=== PATIENT | male | born 1985 | race Caucasian/White ===

== ENCOUNTER 2017-10-06 20:10 | Emergency (ER) | payer OTHER ==
[2017-10-06 20:18] VITALS: RESP 18
[2017-10-06] MEDS ORDERED: Belladonna-Phenobarbital PO STA (20:47)
[2017-10-06] MEDS ORDERED: Lactated Ringer's 1,000 ML IVB STA (20:47)
[2017-10-06] MEDS ORDERED: Lactated Ringer's 1,000 ML ONE (20:55)
[2017-10-06] MEDS ORDERED: Belladonna-Phenobarbital ONE (20:55)
[2017-10-06 20:58] LABS: BASO % 0.3 % (0.0-2.0); EOS # 0.2 K/uL (0.0-0.7); EOS % 2.6 % (0.0-4.0); HEMOGLOBIN 15.2 g/dL (12.0-18.0); LYMPH # 0.9 K/uL (1.0-4.3); LYMPH % 12.5 % (20.0-40.0); MEAN CELL VOLUME 73.6 fL (80.0-94.0); MEAN CORPUSCULAR HEMOGLOBIN 24.6 pg (27.0-31.0); MEAN CORPUSCULAR HGB CONC 33.5 g/dL (33.0-37.0); MEAN PLATELET VOLUME 8.4 fL (7.2-11.7); MONO # 0.6 K/uL (0.0-0.8); MONO % 7.3 % (0.0-10.0); NEUT # 5.8 K/uL (1.8-7.0); NEUT % 77.3 % (50.0-75.0); NRBC % 0.2 % (0.0-2.0); RBC 6.18 Mil/uL (4.40-5.90); RED CELL DISTRIBUTION WIDTH 13.9 % (11.5-14.5); WHITE BLOOD COUNT 7.5 K/uL (4.8-10.8)
[2017-10-06 21:08] LABS: ALB/GLOB RATIO 1.1 (1.0-2.1); ALBUMIN 4.5 g/dL (3.5-5.0); ALT/SGPT 69 U/L (21-72); AST/SGOT 29 U/L (17-59); BLOOD UREA NITROGEN 7 mg/dL (9-20); CALCIUM 8.6 mg/dl (8.6-10.4); GFR AFRICAN-AMERICAN > 60; GFR NON-AFRICAN AMERICAN > 60
[2017-10-06 22:15] VITALS: BP 120/80; PULSE 77; TEMP 98.5; O2SAT 99
--- NOTE | 2017-10-06 23:02 | C.PDOC ---
Time Seen by Provider: 10/06/17 20:31 Chief Complaint (Nursing): GI Problem History Per: Patient Onset/Duration Of Symptoms: Days (few) Current Symptoms Are (Timing): Still Present Severity: Moderate Quality Of Discomfort: Unable To Describe. denies: "Pain" Associated Symptoms: Diarrhea (watery) Alleviating Factors: None Last Bowel Movement: Today Additional History Per: Prior Records Past Medical History Reviewed: Historical Data, Nursing Documentation, Vital Signs Vital Signs: Last Vital Signs Temp 98.5 F 10/06/17 22:14 Pulse 77 10/06/17 22:14 Resp 18 10/06/17 22:14 BP 120/80 10/06/17 22:14 Pulse Ox 99 10/06/17 22:14 - Medical History PMH: No Chronic Diseases Surgical History: No Surg Hx Family History: States: Unknown Family Hx - Social History Hx Alcohol Use: Yes Hx Substance Use: No - Immunization History Hx Tetanus Toxoid Vaccination: No Hx Influenza Vaccination: Yes Hx Pneumococcal Vaccination: No Review Of Systems Except As Marked, All Systems Reviewed And Found Negative. Constitutional: Negative for: Weakness Cardiovascular: Negative for: Chest Pain Respiratory: Negative for: Shortness of Breath Gastrointestinal: Positive for: Diarrhea. Negative for: Vomiting, Abdominal Pain, Melena, Hematochezia, Hematemesis Genitourinary: Negative for: Dysuria Musculoskeletal: Negative for: Neck Pain, Back Pain Skin: Negative for: Rash Neurological: Negative for: Weakness, Numbness Physical Exam - Physical Exam Appears: Non-toxic, No Acute Distress Skin: Normal Color, Warm, Dry, No Rash Head: Atraumatic, Normacephalic Eye(s): bilateral: Normal Inspection, PERRL, EOMI Oral Mucosa: Moist Neck: Normal ROM, Supple Cardiovascular: Rhythm Regular Respiratory: Normal Breath Sounds, No Accessory Muscle Use Gastrointestinal/Abdominal: Soft, No Tenderness, No Distention Back: No CVA Tenderness Extremity: Normal ROM Neurological/Psych: Oriented x3, Normal Motor, Normal Sensation ED Course And Treatment - Laboratory Results Result Diagrams: 10/06/17 20:52 10/06/17 20:52 Lab Interpretation: No Acute Changes O2 Sat by Pulse Oximetry: 99 Pulse Ox Interpretation: Normal Progress - Interventions Interventions:: Observation, Intravenous fluid - Data Reviewed Data Reviewed: Lab, Old records - Patient Status Patient status: Mostly improved - Continuity of Care Discussed patient case with:: Patient, Family-HIPPA compliant, ED Nurse - Patient Plan Patient Plan: Discharge, F/U with PCP Disposition Counseled Patient/Family Regarding: Studies Performed, Diagnosis, Need For Followup, Rx Given - Disposition Disposition: HOME/ ROUTINE Disposition Time: 23:00 Condition: IMPROVED Additional Instructions: Drink plenty of fluids (Gatorade). Follow up with your doctor. Return to the ER if you develop abdominal pain, vomiting, bloody stools, worsening of symptoms or if you have any other concerns. Prescriptions: Bismuth Subsalicylate [Pepto Bismol] 2 tab PO Q1 PRN #16 ctb PRN Reason: Diarrhea Instructions: Diarrhea and Traveler's Diarrhea, Adult (DC) - Clinical Impression Clinical Impression: Diarrhea
== END 2017-10-06 23:12 | disposition home or self-care (01) ==
LOC: SUPCPDRO 20:10 → C.ER 20:10
DX: R19.7 Diarrhea, unspecified (principal)
CPT/HCPCS: 80053; 85025; 99285; J7120

== ENCOUNTER 2017-10-07 22:08 | Emergency (ER) | payer OTHER ==
[2017-10-07 22:14] VITALS: PULSE 78
--- NOTE | 2017-10-07 22:55 | C.PDOC ---
History Of Present Illness Pt was seen by me yesterday and had normal labs. Pt states he is taking the Pepto-Bismol but is still having watery diarrhea. Time Seen by Provider: 10/07/17 22:23 Chief Complaint (Nursing): GI Problem History Per: Patient Onset/Duration Of Symptoms: Days Current Symptoms Are (Timing): Still Present Context: Travel Severity: Moderate Quality Of Discomfort: denies: "Pain" Associated Symptoms: Diarrhea (watery) Alleviating Factors: None Last Bowel Movement: Today Additional History Per: Prior Records Past Medical History Reviewed: Historical Data, Nursing Documentation, Vital Signs Vital Signs: Last Vital Signs Temp 97.4 F L 10/07/17 22:12 Pulse 78 10/07/17 22:12 Resp 16 10/07/17 22:12 BP 132/86 10/07/17 22:12 Pulse Ox 99 10/07/17 22:12 - Medical History PMH: No Chronic Diseases Family History: States: Unknown Family Hx - Social History Hx Alcohol Use: Yes Hx Substance Use: No - Immunization History Hx Tetanus Toxoid Vaccination: No Hx Influenza Vaccination: Yes Hx Pneumococcal Vaccination: No Review Of Systems Except As Marked, All Systems Reviewed And Found Negative. Constitutional: Negative for: Fever, Weakness Cardiovascular: Negative for: Chest Pain Respiratory: Negative for: Shortness of Breath Gastrointestinal: Positive for: Diarrhea. Negative for: Vomiting, Abdominal Pain, Melena, Hematochezia, Hematemesis Genitourinary: Negative for: Dysuria Musculoskeletal: Negative for: Neck Pain, Back Pain Skin: Negative for: Rash Neurological: Negative for: Weakness, Numbness Physical Exam - Physical Exam Appears: Non-toxic, No Acute Distress Skin: Normal Color, Warm, Dry, No Rash Head: Atraumatic, Normacephalic Eye(s): bilateral: Normal Inspection, PERRL, EOMI Oral Mucosa: Moist Neck: Normal ROM, Supple Gastrointestinal/Abdominal: Soft, No Tenderness Extremity: Normal ROM Neurological/Psych: Oriented x3, Normal Motor, Normal Sensation ED Course And Treatment O2 Sat by Pulse Oximetry: 99 Pulse Ox Interpretation: Normal Medical Decision Making Medical Decision Making: Will treat with Cipro for traveler's diarrhea. Disposition Counseled Patient/Family Regarding: Diagnosis, Need For Followup, Rx Given - Disposition Disposition: HOME/ ROUTINE Disposition Time: 22:55 Condition: STABLE Additional Instructions: Drink plenty of fluids. Follow up with your doctor. Return to the ER if you develop abdominal pain, vomiting, bloody stools, worsening of symptoms or if you have any other concerns. Prescriptions: Ciprofloxacin/Ciprofloxa HCl [Ciprofloxacin] 500 mg PO BID #8 ter Instructions: Diarrhea and Traveler's Diarrhea, Adult (DC) - Clinical Impression Clinical Impression: Traveler's diarrhea
[2017-10-07 23:05] VITALS: BP 126/76; RESP 18; TEMP 98; O2SAT 98
== END 2017-10-07 23:04 | disposition home or self-care (01) ==
LOC: C.ER 22:08
DX: R19.7 Diarrhea, unspecified (principal)